=== PATIENT | female | born 1995 | race Caucasian/White ===

== ENCOUNTER 2020-06-18 12:50 | Emergency (ER) | payer OTHER ==
[~2020-06-18] VITALS: Ht 160 cm; Wt 97.5 kg
[2020-06-18 13:05] VITALS: BP 144/92; Ht 160 cm; Wt 97.5 kg
[2020-06-18] MEDS ORDERED: KEFLEX500 M1 PO (13:11)
[2020-06-18] MEDS ORDERED: PYR200 PO (13:11)
== END 2020-06-18 15:21 | disposition home or self-care (01) ==
LOC: ED 12:50
DX: N39.0 Urinary tract infection, site not specified (principal); R39.15 Urgency of urination